=== PATIENT | female | born 1955 | race Caucasian/White ===

== ENCOUNTER 2017-09-23 00:48 | Outpatient (CLI) | payer BC, SELFPAY ==
--- NOTE | 2017-09-23 09:52 | DI.REPORT_ITS ---
SYMPTOMS/DIAGNOSIS: PERSONAL H/O LEFT BREAST CA S/P MASTECTOMY, SCREENING MAMMOGRAMS: Mammograms were interpreted according to the usual protocol including computer analysis with CAD system, tomosynthesis and C view imaging. Comparison is with prior mammograms. The patient is status post left mastectomy. No masses or microcalcifications are seen. The skin and axillae are unremarkable. IMPRESSION: No evidence for malignancy. Yearly mammography is recommended. Category 2, breast density B. The findings were discussed with the patient on the date of the examination. MQSA ASSESSMENT OF FINDINGS: Negative with benign findings. Category 2. Patient will receive a letter notifying them of these results. BI-RADS category B. There are scattered areas of fibroglandular density.
== END 2017-09-23 00:49 ==
PROVIDERS: PCP Nurse Practitioner Family; Visit Provider Internal Medicine
DX: Z12.31 Encounter for screening mammogram for malignant neoplasm of breast (principal); Z85.3 Personal history of malignant neoplasm of breast; Z90.12 Acquired absence of left breast and nipple
CPT/HCPCS: 77063; 77067

== ENCOUNTER 2018-12-04 09:12 | Outpatient (REF) | payer BC, SELFPAY ==
--- NOTE | 2018-12-04 08:30 | PAPFT_PTH ---
PATIENT: SaadJerrod Thi LOC: [facility] U#:[id number] AGE/SX: 63/F ROOM: RE12/04/[address]: Alen Branch : 1955 BED: DIS: 12/04/2018 SPEC #: [id number] RECD: 12/04/18 18:12 STATUS: [place] REQ #: [id number] HAILEY: 12/04/18 08:[address]: Alen Branch DEPT: [facility] Cytology RECD BY: Evie Harrington ENTERED: 12/04/18 18:12 SP TYPE: PAPFT OTHR DR: Robyn Naranjo Tissues: 1 - CX/ENDOCX FOR PAP SMEARS Procedures: PAP THIN PREP/UVM Screening HPV DNA PROBE Comments: [id number]
[2018-12-04 11:56] LABS: HCT 39.3 % (36.0-46.0); HGB 12.7 g/dL (12.0-15.5); Mean Corp. HGB Concentration 32.3 g/dL (32.0-36.0); Mean Corpuscular Volume 95.9 fL (80-95); Mean Platelet Volume 11.5 fL (8.0-11.0); Platelet Count 263 x1000/uL (130-400); RBC Distribution Width 13.4 % (11.7-14.6); White Blood Cell Count 13.58 k/cumm (4.4-10.8)
[2018-12-04 12:17] LABS: ALT 25 U/L (14-59); AST 16 U/L (15-37); Albumin 3.9 g/dL (3.4-5.0); Alkaline Phosphatase 130 U/L (46-116); BUN 22 mg/dL (7-18); Bilirubin, Total 0.4 mg/dL (0.2-1.0); CREATININE 1.13 mg/dL (0.55-1.02); Calcium 8.8 mg/dL (8.5-10.1); Calculated LDL 119 mg/dL; Chloride 104 mmol/L (98-107); Cholesterol 188 mg/dL (50-200); Estimated GFR 48.48 (mL/min/1.73m2); Glucose 93 mg/dL (70-100); HDL Cholesterol 56 mg/dL (40-60); Potassium 3.6 mmol/L (3.5-5.1); Sodium 144 mmol/L (136-145); Total Protein 6.7 g/dL (6.4-8.2); Triglyceride 67 mg/dL (30-150)
== END 2018-12-04 09:32 ==
LOC: NCHCN 09:12
PROVIDERS: PCP Nurse Practitioner Family; Visit Provider Nurse Practitioner Family
DX: Z12.4 Encounter for screening for malignant neoplasm of cervix (principal); Z11.51 Encounter for screening for human papillomavirus (HPV); Z00.00 Encounter for general adult medical examination without abnormal findings; E78.5 Hyperlipidemia, unspecified; I10 Essential (primary) hypertension; N28.9 Disorder of kidney and ureter, unspecified
CPT/HCPCS: 80053; 80061; 85027; 88142; 87624

== ENCOUNTER 2019-01-22 01:38 | Outpatient (CLI) | payer BC, SELFPAY ==
--- NOTE | 2019-01-22 09:08 | DI.MAMMO_ITS ---
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 COMPARISON: 2015 and 2017. FINDINGS: The patient is again noted be status post left lumpectomy. The breasts are composed of fatty density tissue, breast density category A. No suspicious masses or suspicious microcalcifications are seen. IMPRESSION: BI-RADS category 2, negative mammogram with benign findings. Yearly screening mammography is recomme nded. BI-RADS Cat 2 - Benign Findings Breast Density - Category A - Almost entirely fatty
== END 2019-01-22 01:58 ==
PROVIDERS: PCP Nurse Practitioner Family; Visit Provider Nurse Practitioner Family
DX: Z12.31 Encounter for screening mammogram for malignant neoplasm of breast (principal); Z85.3 Personal history of malignant neoplasm of breast; Z98.890 Other specified postprocedural states
CPT/HCPCS: 77063; 77067

== ENCOUNTER 2019-02-02 11:59 | Outpatient (REF) | payer BC, SELFPAY ==
--- NOTE | 2019-02-02 11:37 | ORMUBX_PTH ---
PATIENT: SaadJerrod Thi LOC: [facility] U#:[id number] AGE/SX: 63/F ROOM: RE02/02/[address]: Alirio Wilson DO : 1955 BED: DIS: 02/02/2019 SPEC #: [id number] RECD: 02/02/19 18:30 STATUS: [place] REQ #: [id number] HAILEY: 02/02/19 11:[address]: Alirio Wilson DEPT: Surgical Specimen RECD BY: Evie Harrington ENTERED: 02/02/19 18:32 SP TYPE: ORMUBX OTHR DR: Alen Branch Tissues: 1 - MUCOSA, NOS 2 - MUCOSA, NOS Procedures: GROSS AND MICRO LEVEL 4 SPECIAL STAIN 1 Comments: [id number]
== END 2019-02-02 12:19 ==
LOC: LBN 11:59
PROVIDERS: PCP Nurse Practitioner Family; Visit Provider Otolaryngology Otolaryngology/Facial Plastic Surgery
DX: B37.0 Candidal stomatitis (principal)
CPT/HCPCS: 88305; 88312

== ENCOUNTER 2019-02-17 12:03 | Outpatient (CLI) | payer BC, SELFPAY ==
[2019-02-19 21:52] LABS: c-ANCA Negative (Negative); p-ANCA Negative (Negative)
== END 2019-02-17 12:23 ==
PROVIDERS: PCP Nurse Practitioner Family; Visit Provider Otolaryngology Otolaryngology/Facial Plastic Surgery
DX: K13.29 Other disturbances of oral epithelium, including tongue (principal)
CPT/HCPCS: 36415; 86255

== ENCOUNTER 2019-02-17 12:18 | Outpatient (REF) | payer BC, SELFPAY ==
[2019-02-17 18:44] LABS: HCT 38.5 % (36.0-46.0); HGB 12.9 g/dL (12.0-15.5); Mean Corp. HGB Concentration 33.5 g/dL (32.0-36.0); Mean Corpuscular Hemoglobin 30.6 pg (27.0-33.0); Mean Corpuscular Volume 91.4 fL (80-95); Mean Platelet Volume 11.8 fL (8.0-11.0); Platelet Count 271 x1000/uL (130-400); RBC 4.21 m/cumm (4.00-5.20); RBC Distribution Width 13.1 % (11.7-14.6); White Blood Cell Count 8.91 k/cumm (4.4-10.8)
[2019-02-17 18:57] LABS: Bilirubin Negative (Negative); Blood Trace-intact (Negative); Clarity Clear (Clear); Glucose Negative (Negative); Ketones Negative (Negative); Leukocyte Esterase Negative (Negative); Nitrite Negative (Negative); pH 6.5 (5-8)
[2019-02-17 19:02] LABS: ALT 30 U/L (14-59); AST 17 U/L (15-37); Alkaline Phosphatase 141 U/L (46-116); Anion Gap 9.9 mmol/L (3-11); BUN 27 mg/dL (7-18); Bilirubin, Total 0.6 mg/dL (0.2-1.0); CO2 31.1 mmol/L (21.0-32.0); CREATININE 1.21 mg/dL (0.55-1.02); Calcium 9.2 mg/dL (8.5-10.1); Chloride 105 mmol/L (98-107); Glucose 85 mg/dL (74-106); Potassium 3.2 mmol/L (3.5-5.1); Sodium 146 mmol/L (136-145); TSH (W/Ref FT4) 2.54 uIU/mL (0.36-3.74); Total Protein 6.8 g/dL (6.4-8.2)
[2019-02-17 19:21] LABS: Bacteria Negative HPF (Negative); C & S Indicated? No; Casts Negative LPF (Negative); Crystals Negative HPF (Negative); Epithelial Cells Negative HPF (Negative); Mucus Negative (Negative); Other Cells Negative (Negative); RBC Negative HPF (0-2); WBC 0-2 HPF (0-5)
== END 2019-02-17 12:38 ==
LOC: NCHCN 12:18
PROVIDERS: PCP Nurse Practitioner Family; Visit Provider Nurse Practitioner Family
DX: R19.7 Diarrhea, unspecified (principal); R35.0 Frequency of micturition
CPT/HCPCS: 80053; 85027; 81003; 81015; 84443

== ENCOUNTER 2019-12-16 14:26 | Outpatient (REF) | payer BC, SELFPAY ==
[2019-12-20 17:30] LABS: Patient Race White; SARS-CoV-2 RNA Undetected (Undetected); SARS-CoV-2 Specimen Source Nasal
== END 2019-12-16 14:46 ==
LOC: NCHCN 14:26
PROVIDERS: PCP Nurse Practitioner Family; Visit Provider Nurse Practitioner Family
DX: R19.7 Diarrhea, unspecified (principal); Z11.59 Encounter for screening for other viral diseases
CPT/HCPCS: U0003

== ENCOUNTER 2020-03-17 11:30 | Outpatient (REF) | payer BC, SELFPAY ==
[2020-03-17 13:54] LABS: HCT 37.1 % (36.0-46.0); HGB 12.4 g/dL (11.2-15.7); MCH 29.8 pg (27.0-33.0); MCHC 33.4 % (32.0-36.0); MCV 89.2 fL (80-95); MPV 12.3 fL (8.0-11.0); Platelet Count 248 10^3/uL (130-400); RBC 4.16 10^6/uL (3.93-5.22); RDW 13.2 % (11.7-14.6); RDW-SD 43.3 fL; WBC 8.67 10^3/uL (4.4-10.8)
[2020-03-17 14:13] LABS: Albumin 4.1 g/dL (3.4-5.0); Alkaline Phosphatase 118 U/L (46-116); BUN 25 mg/dL (7-18); Bilirubin, Total 0.5 mg/dL (0.2-1.0); CREATININE 1.3 mg/dL (0.55-1.02); Calcium 9.1 mg/dL (8.5-10.1); Calculated LDL 112 mg/dL (<100); Cholesterol 178 mg/dL (<200); Estimated GFR 41.11 (mL/min/1.73m2); Glucose 95 mg/dL (74-106); HDL Cholesterol 53 mg/dL (40-60); Total Protein 6.7 g/dL (6.4-8.2); Triglyceride 67 mg/dL (<150)
[2020-03-17 14:14] LABS: ALT 32 U/L (14-59); AST 21 U/L (15-37); Anion Gap 5.7 mmol/L (3-11); CO2 30.3 mmol/L (21.0-32.0); Chloride 105 mmol/L (98-107); Potassium 3.7 mmol/L (3.5-5.1); Sodium 141 mmol/L (136-145)
== END 2020-03-17 11:50 ==
LOC: NCHCN 11:30
PROVIDERS: PCP Nurse Practitioner Family; Visit Provider Nurse Practitioner Family
DX: I10 Essential (primary) hypertension (principal); Z00.00 Encounter for general adult medical examination without abnormal findings; N28.9 Disorder of kidney and ureter, unspecified; M79.7 Fibromyalgia; F17.200 Nicotine dependence, unspecified, uncomplicated; R19.7 Diarrhea, unspecified; R74.8 Abnormal levels of other serum enzymes
CPT/HCPCS: 80053; 80061; 85027

== ENCOUNTER 2020-03-25 02:16 | Outpatient (CLI) | payer BC, SELFPAY ==
--- NOTE | 2020-03-25 | DI.US_ITS ---
EXAM: MG MAMMO DIAGNOSTIC BI and U/S breast RT limited CLINICAL HISTORY: DIAGNOSTIC,H/O LT MASTECTOMY,RT BREAST LUMP, N63.0. TECHNIQUE: Craniocaudal and mediolateral oblique Full Field Digital Mammography views with Computer Aided Diagnosis followed by Tomosynthesis and right breast ultrasound. COMPARISON: Comparison is made with prior examinations. FINDINGS: Mammography/Tomosynthesis: Masses/Architectural Distortion: None seen. No mammographic abnormality is seen in the area of palpa ble concern. There is a stable area of architectural distortion in the upper-outer quadrant of the r ight breast. This area has been stable compared to the prior mammograms dating back to 02/16/2016. Status post left lumpectomy. Microcalcifictions: No suspicious pleomorphic-type are seen. Skin Thickening/Nipple Retraction: None. Right breast US: Echotexture: Normal appearance of the glandular tissue. Shadowing: No suspicious foci. Cyst: None. Solid lesions: None seen. Ductal dilation: None. IMPRESSION: 1. No evidence of malignancy is noted. A negative mammogram and ultrasound should not preclude biopsy of a clinically suspicious mass. 2. A six-month follow-up right mammogram is recommended for re-evaluation. 3. The findings were discussed with the patient on the date of the examination. BI-RADS Category 3 - 6 month - Probably Benign Finding: Recommend follow-up mammography in 6 months Breast Density - Category B - Scattered areas of fibroglandular density Breast density Category C or D implies that the patient has dense breast tissue. Dense breast tissue can make it harder to find cancer on a mammogram. Dense breast tissue is also associated with an incr eased risk of breast cancer. This information about the result of the mammogram report was provided to the patient to raise their awareness. Use this report when you speak with the patient about their risks for breast cancer, which includes their family history. At that time, you may recommend additional screening tests (Ultrasoun d or MRI) as these tests may add significant information. A negative radiographic report should not delay biopsy if a dominant or clinically suspicious mass is present. Up to ten percent of cancers are not identified on mammography. A negative report may reinforce clinical impression. Adenosis and dense breasts may obscure an underlying neoplasm. False positive reports average 6 to 10%. Patient will receive a letter notifying them of these results.
== END 2020-03-25 02:17 ==
LOC: DI 02:16
PROVIDERS: PCP Nurse Practitioner Family; Visit Provider Nurse Practitioner Family
DX: Z12.31 Encounter for screening mammogram for malignant neoplasm of breast (principal); N63.11 Unspecified lump in the right breast, upper outer quadrant
CPT/HCPCS: 76642; 77062; 77066; G0279

== ENCOUNTER 2020-09-27 01:28 | Outpatient (CLI) | payer BC, SELFPAY ==
--- NOTE | 2020-09-27 | DI.MAMMO_ITS ---
Exam(s) MG MAMMO DIAGNOSTIC UNI EXAM: MG MAMMO DIAGNOSTIC UNI CLINICAL HISTORY: DIAGNOSTIC, F/U ABNL MAMMO, 6 MO F/U, R92.8. TECHNIQUE: Bilateral full field digital CC and MLO mammographic images with and without implant disp lacement were obtained with 3D tomosynthesis and utilizing computer aided detection (CAD). COMPARISON: MG Screening Bilat Mammo from 02/16/2016 MG SCREENING - 60 MIN DURATION from 09/23/2017 MG MG MAMMO SCREENING 60 MIN DUR from 01/22/2019 MG MG MAMMO SCREENING 60 MIN DUR from 01/22/2019 US BREAST RT LIMITED from 03/25/2020 MG MG MAMMO DIAGNOSTIC BI from 03/25/2020 US BREAST RT LIMITED from 03/25/2020 MG MG MAMMO DIAGNOSTIC BI from 03/25/2020 FINDINGS: Bilateral full field digital CC and MLO mammographic images were obtained with 3D tomosynthesis and utilizing computer aided detection (CAD). Masses/Architectural Distortion: None seen. Microcalcifications: No suspicious pleomorphic-type microcalcifications are seen. Skin thickening/Nipple Retraction: None. Impression: 1. No significant interval change with no specific features of malignancy noted. 2. Unless there is more urgent need, screening mammography is recommended, as per [employer] [employer] guidelines. BI-RADS Category 1 - Negative Breast Density - Category B - Scattered areas of fibroglandular density A negative radiographic report should not delay biopsy if a dominant or clinically suspicious mass is present. Up to ten percent of cancers are not identified on mammography. A negative report may reinforce clinical impression. Adenosis and dense breasts may obscure an underlying neoplasm. False positive reports average 6 to 10%. Patient will receive a letter notifying them of these results.
== END 2020-09-27 01:48 ==
PROVIDERS: PCP Nurse Practitioner Family; Visit Provider Nurse Practitioner Family
DX: Z12.31 Encounter for screening mammogram for malignant neoplasm of breast (principal); R92.8 Other abnormal and inconclusive findings on diagnostic imaging of breast; Z98.82 Breast implant status
CPT/HCPCS: 77061; 77065; G0279

== ENCOUNTER 2021-05-15 03:01 | Outpatient (CLI) | payer BC, SELFPAY ==
[2021-05-15 10:25] LABS: Source Nasal/Nares
[2021-05-15 13:07] LABS: COVID-19 PCR Negative (Negative)
== END 2021-05-15 03:02 | disposition home or self-care (01) ==
LOC: LBO 03:01
PROVIDERS: PCP Nurse Practitioner Family; Visit Provider Surgery
DX: Z20.822 Contact with and (suspected) exposure to COVID-19 (principal); Z01.818 Encounter for other preprocedural examination
CPT/HCPCS: 87635

== ENCOUNTER 2021-05-17 16:03 | Observation (INO) | payer BC, SELFPAY ==
[2021-05-17] VITALS (16 sets, daily range): BP systolic 104–126; BP diastolic 46–93; PULSE 64–94; RESP 10–20; TEMP 35.7–36.5; O2SAT 94–100; BMI 37.0
--- NOTE | 2021-05-17 06:28 | W.PM.OP ---
Date of service: 05/17/21 Time of Service: 10:49 Operative Note Operative Note DATE OF PROCEDURE: 05/17/21 PRE-OP DIAGNOSIS: incisional hernia POST-OP DIAGNOSIS: same PROCEDURE: Laparoscopic incisional hernia repair with mesh SURGEON: Keesha Kumar RETAIL ACCOUNT REPRESENTATIVE: Radha Valdez Refer to Anesthesia Record PATHOLOGY: none sent COMPLICATIONS: None Patient was transported to: PACU Patient's condition: stable Implants: Ventralight ST Mesh: [id number] LOT [id number] EXP 2021-08-15 Indications: Mrs Nash is a pleasant 65-year-old female with a incisional hernia at her open cholecystectomy site.? It bothers her especially at the end of the day when she has been standing all day or if she is trying to lift something.? At this time she does not had any nausea or vomiting.? We discussed laparoscopic versus open repair.? I would recommend laparoscopic repair if I am able to do it.? We discussed reasons for converting to open which are severe adhesions of intestine to the abdominal wall which would make it a risk of injury to the bowel.? We reviewed risks, benefits and complications of both laparoscopic and open repair.? We reviewed the postop expectations. Risks, benefits and complications have been reviewed. Complications include but are not limited to bleeding, pain, infection, injury to underlying structures like bowel and adverse reaction to the medication, inabuility to complete the surgery la[aroscopically.? Questions were entertained and answered to their satisfaction and they wished to proceed. No guarantees were given or implied. COVID-19 testing explained to the patient. Reason for test reviewed. Quarantine per state requirements reviewed with patient. Patient understands and agrees to testing. Proceed with Laparoscopic incisional hernia repair with mesh, possible open. Findings: 2 cm hernia defect at the medial aspect of her open cholecystectomy scar Procedure Description: After informed consent was obtained the patient was taken to the operating room placed in the supine position, SCDs were applied as well as monitors. A timeout was done. The patient was then placed under general anesthesia and intubated without any difficulty. Next a Keith catheter was placed in a standard surgical fashion. At this point the abdomen was prepped and draped in a sterile surgical fashion with chlorhexidine. A second timeout was done and the patient's name, date of , operation to be performed, DVT prophylaxis, antibiotic given, and fire risk was assessed. .25 % bupivocaine was injected into the dermis just above the umbilicus. A small 5 mm incision was made with an 11 blade. The skin was grasped with penetrating towel clamps on either side of the incision and then using a Visiport a 5 mm port was placed under direct visualization into the abdomen. The abdomen was insufflated and adhesions of omentum up to the abdominal wall along the midline were identified. Local anesthetic was then injected in the Left Upper Quadrant. A small 5 mm incision was made with an 11 blade and another 5 mm port was placed under direct visualization into the abdomen. The local anesthetic was then injected to the left of the umbilicus and a 11 mm incision was made with an 11 blade. A 11 mm port was then placed under direct visualization. Using a laparoscopic Ligasure the omentum was gently taken down. The bowel was inspected and there were no injuries noted. Local was then injected to the Right of the umbilicus and a 5 mm incision was made with an 11 blade and another 5 mm port was placed under direct visualization. The defect measured 2 cm approximately. A 9 x 5 inch ECHO PS ELENA mesh was placed into the abdomen through the 11 port site. A small puncture was made over the hernia defect and using a frentingson the blue insuflation piece of the mesh was pulled up. The balloon along the mesh was inflated. The mesh was pulled up and secured by placing a hemostat on the insuflation catheter. Using a 5 mm Tacker, the mesh was tacked up to the abdominal wall circumferentially. Once in good position the mesh balloon was deflated and removed through the 11 port site. The omentum was inspected one more time and no bleeding was noted. Good coverage of the entire hernia defect was noted with this mesh. The 11 mm port was removed and the fascia was closed with 0 vicryl. Two of the 5 mm port were removed under direct visualization and there was no bleeding from the fascia. The last 5 mm port was removed. The skin was then closed with 4-0 Vicryl. The skin was cleaned and dried and skin affix was applied. The patient was woken up, extubated and taken back to recovery room in stable condition. There were no immediate complications. Sponge instrument needle counts were correct at the end of the case x2
--- NOTE | 2021-05-17 06:31 | PDOC.DSDIS_ITS ---
Discharge Plan Disposition Patient Disposition: HOME Condition: Good Discharge Details Reason For Visit: incisional hernia repair Attending Provider: Keesha Kumar Primary Care Provider: Alen Branch Home Meds and New Rx's Prescriptions: New oxycodone 5 mg tablet 5 mg PO Q6H PRNQty: 14 0RF Continued epinephrine 0.3 mg/0.3 mL auto-injector 0.3 mg IM ONCE 0RF Rx Instructions: as a single dose; may repeat once amitriptyline 25 mg tablet 25 mg PO QHS 0RF omeprazole 20 mg capsule,delayed release(DR/EC) 20 mg PO DAILY 0RF albuterol sulfate [ProAir HFA] 90 mcg/actuation HFA aerosol inhaler 2 puff inhalation Q6H PRN0RF aspirin [Adult Aspirin Regimen] 81 mg tablet,delayed release (DR/EC) 81 mg PO DAILY 0RF atorvastatin 20 mg tablet 20 mg PO DAILY 0RF valsartan-hydrochlorothiazide 160-12.5 mg tablet 1 tab PO DAILY 0RF acetaminophen [Tylenol Extra Strength] 500 mg tablet 1,000 mg PO Q6H PRN0RF fluticasone propionate [Allergy Relief (fluticasone)] 50 mcg/actuation spray,suspension 1 spray intranasal DAILY 0RF Rx Instructions: administer into each nostril betamethasone valerate 0.1 % ointment 1 applic topical DAILY 0RF duloxetine 60 mg capsule,delayed release(DR/EC) 60 mg PO DAILY 0RF Discharge Instructions Additional Instructions: Activity at Home after surgery: 1. Make sure you walk outside at least 4 times per day 2. You should be able to climb a flight of stairs 3. No driving while in pain or taking pain medications 4. No strenuous activity or heavy lifting for 2 weeks (laparoscopic surgery) or 4 weeks (open surgery) Diet, Nutrition, & wound healin. Avoid alcohol until after you are recovered from your surgery 2. Make sure to eat plenty of lean protein (meat, fish, eggs, cottage cheese, beans) 3. Eat a variety of fruits and vegetables. Eat plenty of high fiber foods to avoid constipation. 4. Drink plenty of liquids to stay hydrated and avoid constipation Pain Medications: 1. Tylenol 650mg every 6 hours as needed and Ibuprofen 600 mg every 6 hours as needed. You may alternate between the 2 medications every 3 hours 2. If a narcotic has been prescribed take as directed only for breakthrough pain For Constipation: 1. Take Milk of Magnesia or MiraLax as needed for constipation Other: 1. You may shower daily. Do not scrub the incisions 2. Do not soak the incisions for 1 week 3. You may alternate ice and heat as needed for pain and swelling Wound Care: 1. Keep the incisions clean and dry Please call our office if you develop: 1. Fevers >101.5 2. Nausea or Vomiting 3. Worsening pain 4. Redness and thick discharge from the wounds If after hours please call the Hospital at and ask to speak to the on-call surgeon Referrals: Keesha Kumar MD [ [facility] STAFF PHYSICIAN] - Activity:: as above Remove Dressings/Wound Care:: Do Not Remove Shower/Bathe:: 24 hours Diet:: As Tolerated Discharge Orders Discharge Orders: Discharge Order (Routine); Ordered 05/17/21 Ordered By: Keesha Kumar
--- NOTE | 2021-05-17 08:00 | ANES.PREOP_ITS ---
General Info Date of Service Date Performed: 05/17/21 Height: 5 ft Weight: 86.183 kg Body Mass Index (BMI): 37.0 Surgical Procedure: Operation Date: 05/17/21 09:40 Proposed Procedure Side Surgeon p Hernia Incisional/Ventral Laparoscopic, poss. Open Keesha Kumar MD Meds Allergies and Home Medications Allergies Allergy/AdvReac Type Severity Reaction Status Date / Time eucalyptus Allergy Severe Anaphylaxis Verified 05/17/21 07:49 acyclovir Allergy Intermediate Facial Verified 05/17/21 08:01 swelling gentamicin Allergy Intermediate Itching Verified 05/17/21 08:01 and some swelling Iodinated Contrast Media Allergy Intermediate Swelling/Ed Verified 05/17/21 08:01 tin penicillin V Allergy Intermediate Hives Verified 05/17/21 07:49 rofecoxib [From Vioxx] Allergy Intermediate swelling Verified 05/17/21 08:[address] [facility] Home Medication Medication Instructions Recorded acetaminophen 500 mg tablet 1,000 mg PO Q6H PRN tab 04/27/21 (Tylenol Extra Strength) albuterol sulfate 90 mcg/actuation 2 puff INHALATION Q6H PRN 04/27/21 aerosol inhaler (ProAir HFA) amitriptyline 25 mg tablet 25 mg PO QHS 04/27/21 aspirin 81 mg tablet,delayed 81 mg PO DAILY 04/27/21 release (Adult Aspirin Regimen) atorvastatin 20 mg tablet 20 mg PO DAILY 04/27/21 betamethasone valerate 0.1 % 1 applic TOPICAL DAILY 04/27/21 topical ointment duloxetine 60 mg capsule,delayed 60 mg PO DAILY 04/27/21 release epinephrine 0.3 mg/0.3 mL 0.3 mg IM ONCE 04/27/21 injection, auto-injector fluticasone propionate 50 1 spray INTRANASAL DAILY 04/27/21 mcg/actuation nasal spray,suspension (Allergy Relief (fluticasone)) omeprazole 20 mg capsule,delayed 20 mg PO DAILY 04/27/21 release valsartan 160 1 tab PO DAILY 04/27/21 mg-hydrochlorothiazide 12.5 mg tablet oxycodone 5 mg tablet 5 mg PO Q6H PRN #14 tab 05/17/21 Current Visit Medications: Current Medications Generic Name Dose Route Start Last Admin Trade Name Freq PRN Reason Stop Dose Admin Acetaminophen 1,000 mg 05/17/21 06:00 Acetaminophen 500 Mg Tab PO 06/15/21 23:59 PREOP BROOKS Celecoxib 200 mg 05/17/21 06:00 Celecoxib 200 Mg Cap PO 06/15/21 23:59 PREOP BROOKS Gabapentin 600 mg 05/17/21 06:00 Gabapentin 300 Mg Cap PO 06/15/21 23:59 PREOP BROOKS Ringer's Solution 1,000 mls @ 80 mls/hr 05/17/21 06:00 IV 06/15/21 23:59 INFUSION BROOKS Cefazolin Sodium/Dextrose 2 gm in 50 mls @ 100 mls/hr 05/17/21 06:00 Ancef Duplex IVPB 06/15/21 23:59 PREOP BROOKS Promethazine HCl 12.5 mg/ 50.5 mls @ 200 mls/hr 05/17/21 06:34 Sodium Chloride IVPB Q4H PRN PRN Ondansetron HCl 4 mg/ Sodium 52 mls @ 200 mls/hr 05/17/21 06:34 Chloride IVPB Q6H PRN PRN IV Miscellaneous Supplies 1 each 05/17/21 06:00 Iv Access IV 06/15/21 23:59 DIRECTED BROOKS Oxycodone HCl 5 mg 05/17/21 06:34 Oxycodone 5 Mg Tab PO Q3H PRN PRN Pain Sodium Chloride 0 ml 05/17/21 06:00 Normal Saline Flush 10 Ml Syr IV 06/15/21 23:59 PRN PRN Sodium Chloride 0 ml 05/17/21 06:00 Normal Saline 10 Ml Vial IJ 06/15/21 23:59 DIRECTED PRN Sterile Water 0 ml 05/17/21 06:00 Water,Injection,Sterile 10 Ml Vial IJ 06/15/21 23:59 DIRECTED PRN PFSH Active Problems Active Problems: Problem Status Onset Code Incisional hernia K43.2 GERD (gastroesophageal reflux disease) K21.9 Medical History Medical History Asthma Breast lump Burning sensation of mouth Fibromyalgia History of breast cancer Hx of mitral valve prolapse Hyperlipidemia Hypertension Insomnia Intestinal adhesions 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, soft tissue, and skin Obesity Oral lesion Osteoarthritis Renal insufficiency Risk factors for obstructive sleep apnea Seronegative spondyloarthropathy Sicca syndrome Smoker Trochanteric bursitis Surgical History Surgical History (Updated 05/17/21 @ 08:39 by Yessy Rangel) History of carpal tunnel release History of cholecystectomy (~03/1983) open cholecystectomy History of modified radical mastectomy Hx of Achilles tendon repair metal left heel Hx of section Hx of hand surgery rods in two digits Hx of hysterectomy Tobacco Smoking/Tobacco Use Status: Former Tobacco Use Alcohol Alcohol Intake: current Alcohol intake frequency: 0-2 drinks per day Substance Use Substance use: Daily Substance use type: marijuana Vital Signs and Lab Results Lab Results Blood Type / Crossmatch: No Data to Display Complete Blood Count: No Data to Display Complete Metabolic Panel: No Data to Display Liver Function Panel: No Data to Display Coagulation Panel: No Data to Display Cardiac Panel: No Data to Display Arterial Blood Gas: No Data to Display Venous Blood Gas: No Data to Display Pancreas Panel: No Data to Display Thyroid Panel: No Data to Display Infectious Disease: Coronavirus (COVID-19)(PCR) Negative (Negative) 05/15/21 07:48 05/15/21 Coronavirus 2019 Source Nasal/Nares 05/15/21 07:48 05/15/21 Blood Cultures: No Data to Display Toxicology Panel: No Data to Display Anesthesia Assessment and Plan Anesthesia History Personal History: No History of Anesthesia Complications Family History: No Family History of Anesthesia Complications Exercise Tolerance Exercise Tolerance: Metabolic Equivalents>4 Pertinent Negatives Pertinent Negatives: No Symptoms of GERD, No Major Cardiovascular Symptoms or Complaints, No Major Pulmonary Symptoms or Complaints, No History of CVA/TIA and Other (Left foot numbness from achilles surgery) Cardiac & Pulmonary Exam Cardiac Exam: Normal S1/S2 Heart Sounds Pulmonary Exam: Clear Bilateral Breath Sounds Implantable Cardiac Device Does patient have a Pacemaker or an ICD?: No Airway Exam Known Difficult Airway: No Mallampati Class: 3 Mouth Opening: Normal (> 3cm) Thyromental Distance: Greater than 3 cm Neck Range of Motion: Limited ROM Neck Circumference: Normal Teeth Condition: Normal Dentition ASA Classification ASA Score: ASA 3 Emergency Case?: No NPO Status NPO Status: NPO Clears >2 hours, Solids >8 hours Anesthesia Plan Resuscitation Status: Full Code Anesthesia Technique: General Anesthesia Airway Planned: Endotracheal Tube Monitors Used: Standard Monitors
[2021-05-17] MEDS: Acetaminophen 500 MG TAB 1000 MG PO (08:11)
[2021-05-17] MEDS: Celecoxib 200 MG CAP PO (08:11)
[2021-05-17] MEDS: Gabapentin 300 MG CAP 600 MG PO (08:11)
[2021-05-17] MEDS: Lactated Ringers 1,000 ML 80 ML IV (08:35)
[2021-05-17] MEDS: ceFAZolin 2 GM/50 ML BAG IVPB (09:20)
[2021-05-17] MEDS: Bupivacaine 0.25% Pres-Free 30 ML VIAL (09:34)
[2021-05-17] MEDS: fentaNYL 100 MCG/2 ML VIAL IVP (11:25)
--- NOTE | 2021-05-17 12:21 | W.ANESPOSTOP ---
Postoperative Evaluation Date, Time and Location Date Performed: 05/17/21 Time Performed: 12:22 Patient Location: PACU Vital Signs Most Recent Imported Vital Signs: Most Recent Vital Signs Temp Pulse Resp BP Pulse Ox 36.5 C 68 12 110/65 96 05/17/21 11:43 05/17/21 11:43 05/17/21 11:43 05/17/21 11:43 05/17/21 11:43 Pain Score Most Recent Pain Score: Most Recent Pain Score Pain Level 6 05/17/21 11:43 Assessment Mental Status: Awake (Alert & Oriented to Patient Baseline) Airway and Respiratory Function: Patent airway with normal (patient baseline) respiratory exam Cardiovascular Function: Hemodynamically Stable Hydration Status: Adequately Hydrated Nausea & Vomiting: No Nausea or Vomiting Pain: Pain is tolerable per patient Peripheral Nerve Block: Patient did not receive a nerve block
[2021-05-17] MEDS: oxyCODONE 5 MG TAB PO ×2 (12:35→19:55)
[2021-05-17] MEDS: Ketorolac 30 MG/ML VIAL IVP (13:55)
[2021-05-17] MEDS: Ondansetron O.D.T. 4 MG TABEF PO (15:00)
--- NOTE | 2021-05-17 16:11 | W.PM.HP.N ---
Date of service: 05/17/21 Time of Service: 16:11 Assessment and Plan Assessment and plan (1) Postoperative nausea and vomiting: Status: Acute Assessment and plan: Jerrod Ness is a pleasant 65-year-old status post laparoscopic ventral hernia repair today. Unfortunately she has developed postoperative nausea and vomiting. She is also slightly dizzy. I will admit her for hydration and to control her nausea vomiting. Hopefully by tomorrow as the anesthetics wear off she will be able to go home. History of Present Illness Narrative: Jerrod Ness is status post laparoscopic incisional hernia repair with mesh. Unfortunately she has developed nausea, vomiting and dizziness postoperatively. She has been given fluids and nausea medication but she continues to not do well. The plan is to admit her for hydration nausea control and hopefully she will be able to go home tomorrow. She can have a diet as tolerated and I will restart her medications. 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, soft tissue, and skin Obesity Oral lesion Osteoarthritis Renal insufficiency Risk factors for obstructive sleep apnea Seronegative spondyloarthropathy Sicca syndrome Smoker Trochanteric bursitis Surgical History History of carpal tunnel release History of cholecystectomy (~03/1983) open cholecystectomy History of modified radical mastectomy Hx of Achilles tendon repair metal left heel Hx of section Hx of hand surgery rods in two digits Hx of hysterectomy Social History Smoking/Tobacco Use Status: Former Tobacco Use Quit Date: 07/20/19 Smoking risk assessment performed?: Yes Alcohol Intake: current Alcohol Intake frequency: 0-2 drinks per day Drug use: Daily Substance use type: marijuana Current gender identity: female Do you feel safe at home: Yes Do you feel safe in your relationship?: Yes Meds Allergies and Home Medications Allergies Allergy/AdvReac Type Severity Reaction Status Date / Time eucalyptus Allergy Severe Anaphylaxis Verified 05/17/21 07:49 acyclovir Allergy Intermediate Facial Verified 05/17/21 08:01 swelling gentamicin Allergy Intermediate Itching Verified 05/17/21 08:01 and some swelling Iodinated Contrast Media Allergy Intermediate Swelling/Ed Verified 05/17/21 08:01 tin penicillin V Allergy Intermediate Hives Verified 05/17/21 07:49 rofecoxib [From Vioxx] Allergy Intermediate swelling Verified 05/17/21 08:01 in [facility]. Home Medications Medication Instructions Recorded Confirmed Type acetaminophen 500 mg tablet 1,000 mg PO Q6H PRN tab 04/27/21 05/17/21 History (Tylenol Extra Strength) albuterol sulfate 90 mcg/actuation 2 puff INHALATION Q6H PRN 04/27/21 05/17/21 History aerosol inhaler (ProAir HFA) amitriptyline 25 mg tablet 25 mg PO QHS 04/27/21 05/17/21 History aspirin 81 mg tablet,delayed 81 mg PO DAILY 04/27/21 05/17/21 History release (Adult Aspirin Regimen) atorvastatin 20 mg tablet 20 mg PO DAILY 04/27/21 05/17/21 History betamethasone valerate 0.1 % 1 applic TOPICAL DAILY 04/27/21 05/16/21 History topical ointment duloxetine 60 mg capsule,delayed 60 mg PO DAILY 04/27/21 05/17/21 History release epinephrine 0.3 mg/0.3 mL 0.3 mg IM ONCE 04/27/21 05/16/21 History injection, auto-injector fluticasone propionate 50 1 spray INTRANASAL DAILY 04/27/21 05/17/21 History mcg/actuation nasal spray,suspension (Allergy Relief (fluticasone)) omeprazole 20 mg capsule,delayed 20 mg PO DAILY 04/27/21 05/17/21 History release valsartan 160 1 tab PO DAILY 04/27/21 05/17/21 History mg-hydrochlorothiazide 12.5 mg tablet ondansetron HCl 4 mg tablet 4 mg PO Q6H PRN #7 tab 05/17/21 Rx oxycodone 5 mg tablet 5 mg PO Q6H PRN #14 tab 05/17/21 Rx Exam Const General: cooperative, comfortable and no acute distress Resp Effort & Inspection: normal respiratory effort Auscultation: clear to auscultation bilaterally Cardio Rate: regular rate Rhythm: regular rhythm Results Last Vital Signs Temp 97.2 F L 05/17/21 14:34 Pulse 70 05/17/21 14:34 Resp 16 05/17/21 14:34 BP 118/58 L 05/17/21 14:34 Pulse Ox 97 05/17/21 14:34
[2021-05-17] MEDS: Lactated Ringers 1,000 ML 125 ML IV (16:20)
[2021-05-17] MEDS: Docusate Sodium 100 MG CAP PO (19:55)
[2021-05-17] MEDS: Amitriptyline 25 MG TAB PO (21:23)
[2021-05-18] MEDS: Lactated Ringers 1,000 ML 125 ML IV (00:06)
[2021-05-18] MEDS: oxyCODONE 5 MG TAB PO (03:09)
[2021-05-18 03:26] VITALS: BP 111/67; PULSE 84; RESP 18; TEMP 36.6; O2SAT 100
[2021-05-18 07:40] VITALS: BP 109/72; PULSE 82; RESP 17; TEMP 37.1; O2SAT 96
--- NOTE | 2021-05-18 07:56 | W.PM.PROGNOT ---
Date of Service Date of service: 05/18/21 Time of Service: 07:56 Assessment and Plan Assessment and plan (1) Postoperative nausea and vomiting: Status: Acute Assessment and plan: POD # 1 s/p laparoscopic incisional hernia repair. Patient was admitted over night to help control post-op nausea and vomiting. This has since resolved. Pain is currently well controlled. No fevers or chills. Regular diet D/C home later this morning after breakfast. (2) Incisional hernia: Status: Acute Subjective Subjective Interval history since last seen: Patient reports she is feeling much better today. Denies having any nausea or vomiting. She states her abdomen is slightly tender this morning, but other hartman feels great. Exam Const General: cooperative, healthy appearing and comfortable Orientation: alert and oriented x3 Resp Effort & Inspection: normal respiratory effort, no audible wheezes and no cough Objective Last Vital Signs Temp 37.1 C 05/18/21 07:40 Pulse 82 05/18/21 07:40 Resp 17 05/18/21 07:40 BP 109/72 05/18/21 07:40 Pulse Ox 96 05/18/21 07:40
--- NOTE | 2021-05-18 07:59 | W.PM.DS.N ---
Date of service: 05/18/21 Time of Service: 08:00 DS: Diagnosis Discharge Diagnosis (1) Postoperative nausea and vomiting: (2) Incisional hernia: Discharge Plan Disposition Patient Disposition: HOME Condition: Good Discharge Details Reason For Visit: Postop Nausea And Vomiting Admit Date/Time: 05/17/21 16:03 Admit Provider: Keesha Kumar Attending Provider: Keesha Kumar Primary Care Provider: Alen [facility] [place] Hospital Course: 65 y/o female with a history of GERD under went laparoscopic ventral hernia repair yesterday 05/[address] Kumar. Patient was kept over night secondary to post-operative nausea and vomiting. Which resolved over night. Patient's pain was well controlled over night and she is eager to be d/c home. Will d/c home Home Meds and New Rx's Prescriptions: New oxycodone 5 mg tablet 5 mg PO Q6H PRNQty: 14 0RF ondansetron HCl 4 mg tablet 4 mg PO Q6H PRNQty: 7 0RF Continued epinephrine 0.3 mg/0.3 mL auto-injector 0.3 mg IM ONCE 0RF Rx Instructions: as a single dose; may repeat once amitriptyline 25 mg tablet 25 mg PO QHS 0RF omeprazole 20 mg capsule,delayed release(DR/EC) 20 mg PO DAILY 0RF albuterol sulfate [ProAir HFA] 90 mcg/actuation HFA aerosol inhaler 2 puff inhalation Q6H PRN0RF aspirin [Adult Aspirin Regimen] 81 mg tablet,delayed release (DR/EC) 81 mg PO DAILY 0RF atorvastatin 20 mg tablet 20 mg PO DAILY 0RF valsartan-hydrochlorothiazide 160-12.5 mg tablet 1 tab PO DAILY 0RF acetaminophen [Tylenol Extra Strength] 500 mg tablet 1,000 mg PO Q6H PRN0RF fluticasone propionate [Allergy Relief (fluticasone)] 50 mcg/actuation spray,suspension 1 spray intranasal DAILY 0RF Rx Instructions: administer into each nostril betamethasone valerate 0.1 % ointment 1 applic topical DAILY 0RF duloxetine 60 mg capsule,delayed release(DR/EC) 60 mg PO DAILY 0RF Discharge Instructions Additional Instructions: Activity at Home after surgery: 1. Make sure you walk outside at least 4 times per day 2. You should be able to climb a flight of stairs 3. No driving while in pain or taking pain medications 4. No strenuous activity or heavy lifting for 2 weeks (laparoscopic surgery) or 4 weeks (open surgery) Diet, Nutrition, & wound healin. Avoid alcohol until after you are recovered from your surgery 2. Make sure to eat plenty of lean protein (meat, fish, eggs, cottage cheese, beans) 3. Eat a variety of fruits and vegetables. Eat plenty of high fiber foods to avoid constipation. 4. Drink plenty of liquids to stay hydrated and avoid constipation Pain Medications: 1. Tylenol 650mg every 6 hours as needed and Ibuprofen 600 mg every 6 hours as needed. You may alternate between the 2 medications every 3 hours 2. If a narcotic has been prescribed take as directed only for breakthrough pain For Constipation: 1. Take Milk of Magnesia or MiraLax as needed for constipation Other: 1. You may shower daily. Do not scrub the incisions 2. Do not soak the incisions for 1 week 3. You may alternate ice and heat as needed for pain and swelling Wound Care: 1. Keep the incisions clean and dry Please call our office if you develop: 1. Fevers >101.5 2. Nausea or Vomiting 3. Worsening pain 4. Redness and thick discharge from the wounds If after hours please call the Hospital at and ask to speak to the on-call surgeon Stand Alone Forms: Anesthesia Discharge Inst.[facility] ([facility]), Nursing Discharge Form Referrals: Keesha Kumar MD [ [facility] STAFF PHYSICIAN] - 05/26/21 9:30 am Activity:: Activity as Tolerated Equipment/Supplies:: No Equipment Needed Diet:: As Tolerated Discharge Orders Discharge Orders: Discharge Order (Routine); Ordered 05/18/21 Ordered By: Radha Valdez Discharge Data Discharge Date/Time-TO BE ENTERED AT DEPARTURE: 05/18/21 08:56 DS: Summary Time Spent with Patient providing and/or coordinating discharge services: Less than 30 minutes Status at Discharge Functional status at discharge: independent ambulation Overall status at discharge: patient is back to baseline Mental Status: mental status grossly normal Speech and Movement: speech and movement normal Mood: congruent mood Affect: normal affect Exam Const General: cooperative, healthy appearing and comfortable Orientation: alert and oriented x3 Resp Effort & Inspection: normal respiratory effort, no audible wheezes and no cough Psych Mental Status: mental status grossly normal Speech and Movement: speech and movement normal Mood: congruent mood Affect: normal affect DS: Data Vitals/I&O Vitals and I&O: Vital Signs Temperature 37.1 C 05/18/21 07:40 Temperature Source Tympanic 05/18/21 07:40 Pulse 82 05/18/21 07:40 Pulse Rhythm Regular 05/18/21 07:23 Respiratory Rate 17 05/18/21 07:40 Respiratory Effort Non-Labored 05/18/21 07:23 Respiratory Depth Normal 05/18/21 07:23 Respiratory Pattern Normal 05/18/21 07:23 Blood Pressure 109/72 05/18/21 07:40 Blood Pressure Mean 78 05/17/21 14:34 Blood Pressure Position Sitting 05/17/21 14:34 Pulse Oximetry 96 05/18/21 07:40 Respiratory End-tidal CO2 41 05/17/21 11:30 Oxygen Delivery Method Room Air 05/18/21 07:40 Oxygen Flow Rate 0 05/18/21 07:40 Pain Level 2 05/18/21 07:40 Comment 05/17/21 14:34 Intake & Output 05/17/21 05/18/21 05/18/21 18:59 06:59 18:59 Intake Total 810 / 1776.667 966.667 / 1776.667 Output Total 50 / 1250 1200 / 1250 450 / 450 Balance 760 / 526.667 -233.333 / 526.667 -450 / -450 Weight 84 kg Intake: IV 660 / 1626.667 966.667 / 1626.667 Oral 150 / 150 Output: Urine 50 / 1250 1200 / 1250 450 / 450 Other: Urine Color Yellow Yellow Yellow Urine Appearance Clear Clear Clear Urine Odor Normal Normal Comment Pt reports voiding at this time. 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, soft tissue, and skin Obesity Oral lesion Osteoarthritis Renal insufficiency Risk factors for obstructive sleep apnea Seronegative spondyloarthropathy Sicca syndrome Smoker Trochanteric bursitis Surgical History History of carpal tunnel release History of cholecystectomy (~03/1983) open cholecystectomy History of modified radical mastectomy Hx of Achilles tendon repair metal left heel Hx of section Hx of hand surgery rods in two digits Hx of hysterectomy Social History Smoking/Tobacco Use Status: Former Tobacco Use Quit Date: 07/20/19 Smoking risk assessment performed?: Yes Alcohol Intake: current Alcohol Intake frequency: 0-2 drinks per day Drug use: Daily Substance use type: marijuana Current gender identity: female Do you feel safe at home: Yes Do you feel safe in your relationship?: Yes
[2021-05-18] MEDS: Psyllium PKT 1 EACH PO (08:14)
[2021-05-18] MEDS: DULoxetine 30 MG CAP 60 MG PO (08:15)
[2021-05-18] MEDS: Docusate Sodium 100 MG CAP PO (08:15)
[2021-05-18] MEDS: Valsartan 80 MG TAB 160 MG PO (08:15)
[2021-05-18] MEDS: hydroCHLOROthiazide 12.5 MG TAB PO (08:15)
[2021-05-18] MEDS: Atorvastatin 20 MG TAB PO (08:15)
[2021-05-18] MEDS: Omeprazole 20 MG CAPCR PO (08:16)
== END 2021-05-18 08:56 | disposition home or self-care (01) ==
LOC: MS 16:36
PROVIDERS: Admitting Provider Surgery; PCP Nurse Practitioner Family; Visit Provider Surgery
PROC: 0WQF4ZZ Repair Abdominal Wall, Percutaneous Endoscopic Approach (ICD-10-PCS; CPT 49654; principal; 2021-05-17 09:30)
DX: K43.2 Incisional hernia without obstruction or gangrene (principal); R11.2 Nausea with vomiting, unspecified; K21.9 Gastro-esophageal reflux disease without esophagitis; M79.7 Fibromyalgia; Z85.3 Personal history of malignant neoplasm of breast; E78.5 Hyperlipidemia, unspecified; I10 Essential (primary) hypertension; G47.00 Insomnia, unspecified; E66.9 Obesity, unspecified; Z68.36 Body mass index [BMI] 36.0-36.9, adult; M35.00 Sjogren syndrome, unspecified; F17.210 Nicotine dependence, cigarettes, uncomplicated
CPT/HCPCS: 49654; C1781; G0378; J0690; J1100; J1885; J2250; J2405; J3010

== ENCOUNTER 2021-10-12 18:05 | Outpatient (REF) | payer BC, SELFPAY ==
[2021-10-12 16:34] LABS: Calculated LDL 124 mg/dL (<100); Cholesterol 203 mg/dL (<200); HDL Cholesterol 66 mg/dL (40-60); Triglyceride 68 mg/dL (<150)
== END 2021-10-12 18:06 | disposition home or self-care (01) ==
LOC: NCHCN 18:05
PROVIDERS: PCP Nurse Practitioner Family; Visit Provider Nurse Practitioner Family
DX: I10 Essential (primary) hypertension (principal); E78.5 Hyperlipidemia, unspecified
CPT/HCPCS: 80061

== ENCOUNTER → 2021-11-08 01:31 | Outpatient (CLI) | payer BC, SELFPAY ==
--- NOTE | 2021-11-08 | DI.US_ITS ---
Exam(s) US BREAST RT COMPLETE MG MAMMO SCREENING 60 MIN DUR EXAM: MG MAMMO SCREENING 60 MIN DUR AND COMPLETE RIGHT BREAST ULTRASPOUND CLINICAL HISTORY: SCREENING FOR BREAST CANCER, HX LEFT MASTECTOMY Z90.12. TECHNIQUE: Bilateral full field digital CC and MLO mammographic images were obtained with 3D tomosyn thesis and utilizing computer aided detection (CAD). Also performed spot compression 3D MLO view of t he right breast Complete right breast ultrasound was performed including all 4 quadrants, the retroareolar region and right axilla. COMPARISON: Prior mammograms were reviewed, the most recent being September 2020.. Prior right breast ultrasound was reviewed. FINDINGS: BILATERAL DIAGNOSTIC MAMMOGRAM: Left breast lumpectomy site appears unremarkable and there are no new left breast findings. In the right breast on 3D MLO imaging there is some architectural distortion seen approximately 8 cm in from the nipple. Less visible on CC view. There are no malignant-appearing microcalcification groups is region or elsewhere in either breast. No new skin thickening-retraction. COMPLETE RIGHT BREAST ULTRASOUND: There is no evidence of solid or significant cystic lesions in all 4 quadrants and there are no worri some areas of decreased through transmission. Scanning of the retroareolar region is negative for significant findings. Scanning of the right axilla is negative for significant adenopathy. IMPRESSION: 1. No radiographic evidence of malignancy in left breast (which is the site of prior lumpectomy). 2. Subtle architectural distortion in the opposite-right breast evident on 3D MLO view. 3. Negative complete right breast ultrasound. Appropriate follow-up, as discussed by myself with the patient today, is to proceed with breast MRI study. This is a patient has already had malignancy in the opposite breast and informs me that she ruiz s been feeling on and off discomfort in the right breast for some time. She does not feel an actual l ump. BI-RADS Category 0 - Assessment Incomplete: Need additional imaging evaluation, specifically breast M RI. Breast Density - Category B - Scattered areas of fibroglandular density Breast density Category C or D implies that the patient has dense breast tissue. Dense breast tissue can make it harder to find cancer on a mammogram. Dense breast tissue is also associated with an incr eased risk of breast cancer. This information about the result of the mammogram report was provided to the patient to raise their awareness. Use this report when you speak with the patient about their risks for breast cancer, which includes their family history. At that time, you may recommend additional screening tests (Ultrasoun d or MRI) as these tests may add significant information. A negative radiographic report should not delay biopsy if a dominant or clinically suspicious mass is present. Up to ten percent of cancers are not identified on mammography. A negative report may reinforce clinical impression. Adenosis and dense breasts may obscure an underlying neoplasm. False positive reports average 6 to 10%. Patient will receive a letter notifying them of these results.
== END ==
PROVIDERS: Visit Provider Nurse Practitioner Family
DX: Z12.31 Encounter for screening mammogram for malignant neoplasm of breast (principal); R92.8 Other abnormal and inconclusive findings on diagnostic imaging of breast
CPT/HCPCS: 76642; 77063; 77067

== ENCOUNTER 2022-08-01 12:41 | Outpatient (CLI) | payer BC, SELFPAY ==
[2022-08-01 12:14] LABS: Abs Immature Grans 0.04 10^3/uL (0.0-0.06); Absolute Basophil Count 0.07 10^3/uL (0.0-0.2); Absolute Eosinophil Count 0.36 10^3/uL (0.0-0.7); Absolute Lymphocyte Count 2.71 10^3/uL (1.2-3.4); Absolute Monocyte Count 0.51 10^3/uL (0.1-0.8); Absolute Neutrophil Count 5.66 10^3/uL (1.2-6.7); Basophils % 0.7; Eosinophils % 3.9; HCT 38.6 % (36.0-46.0); HGB 13.3 g/dL (11.2-15.7); Immature Grans % 0.4; MCH 30.4 pg (27.0-33.0); MCHC 34.5 % (32.0-36.0); MCV 88 fL (80-95); Monocytes % 5.5; Neutrophils % 60.5; Platelet Count 261 10^3/uL (130-400); RBC 4.38 10^6/uL (3.93-5.22); RDW 13.1 % (11.7-14.6); RDW-SD 42.2 fL; WBC 9.35 10^3/uL (4.4-10.8)
[2022-08-01 13:01] LABS: ALT 37 U/L (14-59); AST 21 U/L (15-37); Alkaline Phosphatase 137 U/L (46-116); Anion Gap 8.7 mmol/L (3-11); BUN 19 mg/dL (7-18); Bilirubin, Total 0.6 mg/dL (0.2-1.0); CO2 29.3 mmol/L (21.0-32.0); Chloride 106 mmol/L (98-107); Estimated GFR 61.36 (mL/min/1.73m2); Glucose 96 mg/dL (74-106); Sodium 144 mmol/L (136-145); Total Protein 7.4 g/dL (6.4-8.2)
[2022-08-01 13:41] LABS: Potassium 2.8 mmol/L (3.5-5.1)
[2022-08-02 08:58] LABS: C3 Complement 139 mg/dL (81-157); C4 Complement 28 mg/dL (13-39)
[2022-08-02 12:44] LABS: ANA Interpretation Positive (Negative); ANA Titer Pattern 1:80 Homogeneous
[2022-08-03 10:34] LABS: Complement C1q, S 19 mg/dL (12 - 22)
[2022-08-03 19:52] LABS: Beef IgE <0.10 kU/L (<0.70); Blue Mussel IgE <0.10 kU/L (<0.70); Cacao/Cocoa, IgE <0.10 kU/L (<0.70); Codfish IgE <0.10 kU/L (<0.70); Corn-Food IgE <0.10 kU/L (<0.70); Crab IgE <0.10 kU/L (<0.70); Lobster IgE <0.10 kU/L (<0.70); Milk, IgE <0.10 kU/L (<0.70); Olive IgE <0.10 kU/L (<0.70); Peanut IgE <0.10 kU/L (<0.70); Salmon IgE <0.10 kU/L (<0.70); Shrimp IgE <0.10 kU/L (<0.70); Soybean IgE <0.10 kU/L (<0.70); Tuna IgE <0.10 kU/L (<0.70)
[2022-08-03 20:10] LABS: Egg Whole IgE <0.10 kU/L (<0.70)
[2022-08-06 12:22] LABS: Banana IgG 6.7 mcg/mL
== END 2022-08-01 12:42 | disposition home or self-care (01) ==
LOC: LBO 12:42
PROVIDERS: PCP Nurse Practitioner Family; Visit Provider Physician Assistant
DX: T78.3XXA Angioneurotic edema, initial encounter (principal)
CPT/HCPCS: 36415; 80053; 86001; 86003; 85025; 86038; 86160; 86161

== ENCOUNTER 2022-08-20 16:27 | Outpatient (REF) | payer BC, SELFPAY ==
[2022-08-20 20:58] LABS: ALT 21 U/L (14-59); AST 25 U/L (15-37); Alkaline Phosphatase 118 U/L (46-116); Anion Gap 9.8 mmol/L (3-11); BUN 25 mg/dL (7-18); Bilirubin, Total 0.5 mg/dL (0.2-1.0); CO2 26.2 mmol/L (21.0-32.0); CREATININE 1.1 mg/dL (0.55-1.02); Calcium 9.1 mg/dL (8.5-10.1); Chloride 107 mmol/L (98-107); Estimated GFR 54.73 (mL/min/1.73m2); Glucose 80 mg/dL (74-106); Potassium 3.6 mmol/L (3.5-5.1); Sodium 143 mmol/L (136-145)
== END 2022-08-20 16:28 | disposition home or self-care (01) ==
LOC: NCHCN 16:27
PROVIDERS: PCP Nurse Practitioner Family; Visit Provider Nurse Practitioner Family
DX: G47.00 Insomnia, unspecified (principal); E87.6 Hypokalemia
CPT/HCPCS: 80053

== ENCOUNTER → 2023-04-18 03:42 | Outpatient (CLI) | payer BC, SELFPAY ==
--- NOTE | 2023-04-18 | DI.MAMMO_ITS ---
Exam(s) MG MAMMO SCREENING 60 MIN DUR EXAM: MG MAMMO SCREENING 60 MIN DUR CLINICAL HISTORY: SCREENING, PERSONAL H/O BREAST CA,Z95.3 TECHNIQUE: Mammograms were interpreted according to the usual protocol including computer analysis w [employer] CAD system, tomosynthesis and C-view imaging. COMPARISON: 2015 through 2021 FINDINGS: The breasts are composed of mainly fatty density , Breast Density category A. No suspicious masses or suspicious microcalcifications are seen. No skin thickening or abnormal axillary lymph nodes are seen. There has been no significant change from prior exams. IMPRESSION: BI-RADS Category 1, Negative mammogram Yearly screening mammography is recommended. Breast Density - Category A, fatty density. A negative radiographic report should not delay biopsy if a dominant or clinically suspicious mass is present. Up to ten percent of cancers are not identified on mammography. A negative report may reinforce clinical impression. Adenosis and dense breasts may obscure an underlying neoplasm. False positive reports average 6 to 10%. Patient will receive a letter notifying them of these results.
== END ==
PROVIDERS: PCP Nurse Practitioner Family; Visit Provider Nurse Practitioner Family
DX: Z12.31 Encounter for screening mammogram for malignant neoplasm of breast (principal); Z95.3 Presence of xenogenic heart valve
CPT/HCPCS: 77063; 77067